=== PATIENT | male | born 1975 | race African-American/Black ===

== ENCOUNTER 2018-04-30 08:17 | Emergency (ER) | payer BC ==
--- NOTE | 2018-04-30 08:43 | RAD ---
FRONTAL VIEW CHEST: Comparison: 04-15-16 Indication: Chest pain. FINDINGS: There is no consolidation, effusion, or pneumothorax. Cardiac silhouette is normal in size. Osseous s tructures are intact. IMPRESSION: No focal consolidation. POS: TPC
[2018-04-30 08:44] LABS: #Basophils 0.1 thou/uL (0.0-0.2); #Eosinphils 0.3 thou/uL (0.0-0.7); #Lymphocytes 2.2 thou/uL (1.20-3.40); #Monocytes 0.6 thou/uL (0.11-0.59); #Neutrophils 4.5 thou/uL (1.40-6.50); %Basophils 1.2 % (0.0-1.0); %Eosinophils 3.9 % (0.0-10.0); %Lymphocytes 28.1 % (21.0-51.0); %Monocytes 8.3 % (0.0-10.0); %Neutrophils 58.6 % (42.0-75.0); Mean Corpuscular HGB CONC 33.9 g/dL (32.0-36.0); Mean Corpuscular Hemoglobin 29.8 pg (27.0-31.0); Mean Corpuscular Volume 87.7 fL (78.0-98.0); Mean Platelet Volume 7.9 fL (7.4-10.4); Platelet Count 203 thou/uL (130-400); RBC Distribution Width 12.1 % (11.5-14.5); Red Blood Cell (RBC) Count 5.02 mill/uL (4.70-6.10); White Blood Cell (WBC) Count 7.8 thou/uL (4.8-10.8)
[2018-04-30 09:21] LABS: ALT (SGPT) 30 U/L (8-55); AST (SGOT) 27 U/L (5-34); Albumin 4.4 g/dL (3.5-5.0); Alkaline Phosphatase 65 U/L (40-150); Anion Gap 12 mmol/L (10-20); BUN (Urea Nitrogen) 12 mg/dL (8.9-20.6); Bilirubin, Total 0.4 mg/dL (0.2-1.2); CK (CPK) 247 U/L (30-200); Calc. Creatinine Clearance 0 mL/min (70-130); Calcium 9.6 mg/dL (7.8-10.44); Carbon Dioxide 27 mmol/L (22-29); Chloride 102 mmol/L (98-107); Estimated GFR-MDRD Greater than 90; Globulin 3.4 g/dL (2.4-3.5); Glucose 114 mg/dL (70-105); Potassium 3.6 mmol/L (3.5-5.1); Protein, Total 7.8 g/dL (6.0-8.3); Sodium 137 mmol/L (136-145)
[2018-04-30 09:24] LABS: CKMB 1.4 ng/mL (0-6.6); Troponin I Less than 0.010 ng/mL (< 0.028)
[2018-04-30 12:22] LABS: Troponin I Less than 0.010 ng/mL (< 0.028)
== END 2018-04-30 12:35 | disposition home or self-care (01) ==
LOC: ERS 08:17
DX: R07.89 Other chest pain (principal); Z71.6 Tobacco abuse counseling; F17.210 Nicotine dependence, cigarettes, uncomplicated; I10 Essential (primary) hypertension; F32.9 Major depressive disorder, single episode, unspecified; Z79.899 Other long term (current) drug therapy
CPT/HCPCS: 36415; 71045; 80053; 82553; 83880; 84484; 85025; 93005; 99406

== ENCOUNTER 2019-04-28 15:38 | Observation (INO) | payer BC ==
[~2019-04-28 15:38] MED LIST: Iopamidol-370 76% 500 ML 1 ML ONE
[2019-04-28 16:53] LABS: Bilirubin Negative (Negative); Blood, Urine Negative (Negative); Clarity Clear (Clear); Glucose, Urine (Dipstick) Normal (Negative); Leukocyte Negative Leu/uL (Negative); Nitrite Negative (Negative); Protein, Urine (Dipstick) Negative (Neg-Trace); Urobilinogen Normal mg/dL (Less than 2)
--- NOTE | 2019-04-28 17:03 | CT ---
CT BRAIN NONCONTRAST: DATE: 04/28/2019 HISTORY: 43-year-old male with blurry vision, left facial paresthesia, lightheadedness. This acute stroke alert protocol report was called to Anita Del Castillo of the emergency Department at 5: 00 PM on 04/28/2019. She will relay the message to Dr. Smith. FINDINGS: There is no evidence of acute intra-axial or extra-axial hemorrhage. There is no midline shift or any other mass effect. There is no extra-axial fluid collection. The ventricles are normal in size and configuration. The tympanomastoid cavities, and the upper portions of the paranasal sinuses included in these images, are grossly clear. Calvarium is intact. IMPRESSION: Normal.
[2019-04-28 17:10] LABS: #Basophils 0.1 thou/uL (0.0-0.2); #Eosinphils 0.1 thou/uL (0.0-0.7); #Lymphocytes 1.6 thou/uL (1.20-3.40); #Monocytes 0.7 thou/uL (0.11-0.59); #Neutrophils 3.7 thou/uL (1.40-6.50); %Basophils 1.2 % (0.0-1.0); %Eosinophils 1.7 % (0.0-10.0); %Lymphocytes 26.3 % (21.0-51.0); %Monocytes 11.3 % (0.0-10.0); %Neutrophils 59.6 % (42.0-75.0); Hemoglobin 14.2 g/dL (14.0-18.0); Mean Corpuscular HGB CONC 33.5 g/dL (32.0-36.0); Mean Corpuscular Hemoglobin 29.8 pg (27.0-31.0); Mean Corpuscular Volume 88.9 fL (78.0-98.0); Mean Platelet Volume 7.1 fL (7.4-10.4); Platelet Count 176 thou/uL (130-400); Red Blood Cell (RBC) Count 4.76 mill/uL (4.70-6.10); White Blood Cell (WBC) Count 6.1 thou/uL (4.8-10.8)
[2019-04-28 17:17] LABS: PTT 26.7 SEC (22.9-36.1); Prothrombin Time 13.6 SEC (12.0-14.7)
[2019-04-28 17:18] LABS: D-Dimer Test 0.88 *mcg/mL (0.27-0.43)
--- NOTE | 2019-04-28 17:27 | CT ---
CT ANGIOGRAM NECK WITH CONTRAST CT ANGIOGRAM BRAIN WITH CONTRAST: DATE: 04/28/2019 HISTORY: 43-year-old male with acute stroke symptoms: Left facial paresthesia, blurry vision, and lightheadedn ess. Dr. Butterfield verbally gave this level 2 stroke alert protocol report to Dr. De La Torre at 5:22 PM on 9 TECHNIQUE: After IV contrast injection, arterial bolus chasing technique scan performed from subcarinal mediasti num to vertex of head. Coronal and sagittal 3-D MIP reconstructions. FINDINGS: Esophagus is fluid-filled and dilated. Entire hypopharynx is air-filled and dilated. No abnormality of larynx identified. Upper lung zones are clear. Aortic arch: Unremarkable. Brachiocephalic: Normal Proximal right subclavian: Normal Left subclavian: Normal. Right common carotid: Normal. Cervical right internal carotid: Mild calcified plaque near origin. Otherwise normal. Left common carotid: Normal. Cervical left internal carotid: Mild calcified plaque near origin. Otherwise normal. Cervical right vertebral: Diminutive. No short segment focal severe stenosis identified. Cervical left vertebral: The dominant. Normal. Intracranial vertebrals: No high-grade stenosis. Basilar: No high-grade short segment focal stenosis. Diffusely small in caliber. Bilateral patient care manager: Bilateral P1 and P2 segments patent. Diffusely small caliber. Bilateral carotid siphons: No short segment high-grade stenosis identified. Bilateral MCAs: No M1 segment occlusion or severe focal stenosis. Bilateral ACAs: A1 and A2 segments are not occluded. Left A1 segment is diminutive. Anterior circulation vessels are also diffusely mildly small in caliber. Dural venous sinuses: No thrombosis. IMPRESSION: 1. Dilated esophagus. 2. No M1 segment acute thrombosis. 3. Anterior and especially posterior circulation arteries are diffusely small in caliber. 4. Right vertebral artery is diminutive. 5. Mild atherosclerosis at proximal bilateral internal carotids without stenosis.
[2019-04-28 17:28] LABS: ALT (SGPT) 34 U/L (8-55); AST (SGOT) 36 U/L (5-34); Alkaline Phosphatase 61 U/L (40-110); Anion Gap 12 mmol/L (10-20); BUN (Urea Nitrogen) 8 mg/dL (8.9-20.6); Bilirubin, Total 0.3 mg/dL (0.2-1.2); Calc. Creatinine Clearance 0 mL/min (70-130); Calcium 8.8 mg/dL (7.8-10.44); Carbon Dioxide 29 mmol/L (22-29); Chloride 98 mmol/L (98-107); Estimated GFR-MDRD Greater than 90; Globulin 2.8 g/dL (2.4-3.5); Glucose 95 mg/dL (70-105); Potassium 3.6 mmol/L (3.5-5.1); Protein, Total 6.8 g/dL (6.0-8.3); Sodium 135 mmol/L (136-145)
[2019-04-28] MEDS ORDERED: Aspirin Chewable 81 MG TAB ONE (17:30)
--- NOTE | 2019-04-28 17:45 | RAD ---
PORTABLE CHEST: History: Dizziness. FINDINGS: The lung herrera are clear. Heart and mediastinum unremarkable. IMPRESSION: No acute abnormality. POS: AGW
[2019-04-28] MEDS ORDERED: hydrALAZINE 20 MG/ML VIAL SLOW IVP PRN (19:08)
[2019-04-28] MEDS ORDERED: Acetaminophen 325 MG TAB PO PRN (19:09)
[2019-04-28] MEDS ORDERED: Ondansetron PF 4 MG/2 ML Vial IVP PRN (19:09)
[2019-04-28] MEDS ORDERED: Calcium Carbonate 500 MG ChewTAB PO PRN (19:09)
[2019-04-28] MEDS ORDERED: Ondansetron ODT 4 MG TAB PO PRN (19:09)
--- NOTE | 2019-04-28 19:27 | HP ---
PRIMARY CARE PHYSICIAN: Jody Barry. CHIEF COMPLAINT: Stroke-like symptoms. HISTORY OF PRESENT ILLNESS: The patient is a 43-year-old male with hypertension , ongoing tobacco and alcohol abuse, presented to the emergency room with above complaints. Earlier today, the patient developed sudden onset of left-sided facial tingling along with lightheadedness and diaphoresis. He denied any weakness in his extremities. No sensory deficit reported. He denies any ataxia, headaches, seizure, or palpitations. Four months ago, the patient discontinued lisinopril. Two months ago, he was evaluated by his primary care physician. His blood pressure at that time was in normal range. In the emergency room, his initial vital signs showed temperature 98.3 blood pressure of 173/86 with O2 saturation of 100% on room air. CT scan of the brain was negative for acute findings. His NIH was 1. He received aspirin in the emergency room. He denies any syncopal episode. PAST MEDICAL HISTORY: 1. Hypertension. 2. Tobacco dependence. 3. History of achalasia and esophageal stricture. 4. Chronic alcoholism. PAST SURGICAL HISTORY: Esophageal dilatation for achalasia. ALLERGIES: NO KNOWN DRUG ALLERGIES. CURRENT HOME MEDICATIONS: Reviewed with the patient and none. SOCIAL HISTORY: The patient currently lives at home with his family. He continues to smoke up to one pack a day. He drinks almost on a daily basis. Denies any history of withdrawals. FAMILY HISTORY: Positive for one brother and uncle with stroke. REVIEW OF SYSTEMS: All other review of systems was reviewed and were found negative. PHYSICAL EXAMINATION: VITAL SIGNS: As discussed above. GENERAL: A 43-year-old male in no apparent distress. HEENT: Head, atraumatic and normocephalic. Sclerae anicteric. Moist mucous membranes. No oral lesion. NECK: Supple. No JVD appreciated. No carotid bruit. LUNGS: Clear to auscultation bilaterally. No wheezing, rales, or rhonchi. HEART: S1 and S2 present. Regular rate and rhythm. No rubs or gallops. ABDOMEN: Soft, nontender. Bowel sounds present. EXTREMITIES: No edema or calf tenderness. NEUROLOGY: There is numbness over the left half of the face. Power was 5/5 in all extremities. [id number] test was normal. Reflexes were equivocal. PSYCHIATRY: Alert, awake, and oriented x3. SKIN: Warm and dry. LYMPH NODES: No palpable lymph nodes in the neck. PERIPHERAL VASCULAR: Radial pulses palpable bilaterally. MUSCULOSKELETAL: No joint swelling or tenderness. DIAGNOSTIC TESTS: EKG by my review showed sinus rhythm with left ventricular hypertrophy. Troponin was negative. Sodium 135 with potassium 3.6, BUN 8, creatinine 0.82. PT/INR in normal range. Urinalysis was negative. CT scan of the brain by my review was negative for acute findings. CTA of the head and neck was negative for hemodynamically significant stenosis. IMPRESSION: 1. Transient ischemic attack, rule out cerebrovascular accident. 2. Hypertension with hypertensive heart disease. 3. Tobacco dependence. 4. Chronic alcoholism. 5. Hyponatremia. 6. Medication noncompliance. PLAN: The patient will be monitored in the stroke unit. We will start him on aspirin. We will keep his blood pressure on the high range for suspected CVA. We will get a stroke workup. We will start him on 81 mg of aspirin. Neuro checks. The patient was extensively counseled to quit alcohol and tobacco use. Plan of care was discussed with the patient in detail. He stated understanding. Job ID: [id number] [facility]
[2019-04-28 19:58] LABS: Troponin I Less than 0.010 ng/mL (< 0.028)
[2019-04-28] MEDS ORDERED: Atorvastatin Calcium 40 MG TAB PO SCH (21:00)
[2019-04-28 22:37] LABS: Troponin I 0.023 ng/mL (< 0.028)
[2019-04-28 22:47] VITALS: TEMP 98.8; BMI 29.4
[2019-04-28 22:48] VITALS: BP 149/88
[2019-04-29] MEDS ORDERED: Aspirin 81 mg Enteric Coated Tablet PO SCH (09:00)
[2019-04-29] MEDS ORDERED: Enoxaparin Sodium 40 MG/0.4 ML SYRINGE SC SCH (09:00)
--- NOTE | 2019-04-30 10:05 | DIS ---
DATE OF ADMISSION: 04/28/2019 DATE OF DISCHARGE: 04/28/2019 The patient signed against medical advise. BRIEF HOSPITAL COURSE: The patient is a 43-year-old male with hypertension, ongoing tobacco and alcohol abuse, presented to the hospital with stroke-like symptoms. His blood pressure in the emergency room was in 170s. CT scan of the brain was negative. He was admitted to the Stroke Unit with a diagnosis of TIA. A stroke workup was ordered. However, the patient signed against medical advise shortly after admission. FINAL DIAGNOSES: 1. Suspected transient ischemic attack. 2. Hypertension with hypertensive heart disease. 3. Tobacco and alcohol abuse. 4. Hyponatremia. 5. Medication noncompliance. Job ID: [id number]
== END 2019-04-28 23:00 | disposition home or self-care (01) ==
LOC: ERS 15:38 → 2SE 21:28
PROVIDERS: ADMIT Internal Medicine; ATTEND Internal Medicine
DX: R20.2 Paresthesia of skin (principal); R42 Dizziness and giddiness; I11.9 Hypertensive heart disease without heart failure; F17.210 Nicotine dependence, cigarettes, uncomplicated; F10.20 Alcohol dependence, uncomplicated; E87.1 Hypo-osmolality and hyponatremia; I65.23 Occlusion and stenosis of bilateral carotid arteries; Z53.29 Procedure and treatment not carried out because of patient's decision for other reasons; Z91.14 Patient's other noncompliance with medication regimen
CPT/HCPCS: 36415; 36416; 70450; 70496; 70498; 71045; 80053; 81003; 84484; 85025; 85379; 85610; 85730; 93005; G0378; Q9967

== ENCOUNTER 2019-08-09 07:46 | Emergency (ER) | payer BC ==
[2019-08-09 08:34] LABS: Anion Gap 16 mmol/L (10-20); BUN (Urea Nitrogen) 8 mg/dL (8.9-20.6); Calc. Creatinine Clearance 0 mL/min (70-130); Calcium 9.4 mg/dL (7.8-10.44); Carbon Dioxide 24 mmol/L (22-29); Chloride 101 mmol/L (98-107); Estimated GFR-MDRD Greater than 90; Glucose 92 mg/dL (70-105); Potassium 3.5 mmol/L (3.5-5.1); Sodium 137 mmol/L (136-145)
== END 2019-08-09 09:07 | disposition home or self-care (01) ==
LOC: ERS 07:46
DX: I10 Essential (primary) hypertension (principal); F32.9 Major depressive disorder, single episode, unspecified; F17.210 Nicotine dependence, cigarettes, uncomplicated; Z79.899 Other long term (current) drug therapy; Z86.73 Personal history of transient ischemic attack (TIA), and cerebral infarction without residual deficits
CPT/HCPCS: 80048; 84484; 93005

== ENCOUNTER 2019-08-13 22:00 | Emergency (ER) | payer BC ==
[2019-08-13] MEDS ORDERED: Mag-Al 1200 mg/1200 mg/30 ML UDCUP ONE (23:42)
[2019-08-13] MEDS ORDERED: Lidocaine Viscous Sol 2% 15 ml UD Cup ONE (23:42)
== END 2019-08-14 00:26 | disposition home or self-care (01) ==
LOC: ERS 22:00
DX: K20.8 Other esophagitis (principal); T45.2X5A Adverse effect of vitamins, initial encounter; I10 Essential (primary) hypertension; F41.9 Anxiety disorder, unspecified; F32.9 Major depressive disorder, single episode, unspecified; F17.210 Nicotine dependence, cigarettes, uncomplicated; Z86.73 Personal history of transient ischemic attack (TIA), and cerebral infarction without residual deficits; Z79.899 Other long term (current) drug therapy
CPT/HCPCS: 99283